=== PATIENT | female | born 1960 | race Caucasian/White ===

== ENCOUNTER 2017-08-29 15:10 | Emergency (ER) | payer MEDICAID, OTHER ==
[~2017-08-29] VITALS: Ht 177.8 cm; Wt 68.0 kg
[2017-08-29 17:05] LABS: Basophils # (auto) 0 uL; Basophils % (auto) 0.4 % (0.0-2.0); Eosinophils # (auto) 0.1 uL; Eosinophils % (auto) 1.7 % (0.0-7.0); Hematocrit 48.9 % (36.0-46.0); Hemoglobin 16.4 g/dL (12.2-16.2); Lymphocytes % (auto) 18.2 % (10.0-50.0); Mean Corpuscular Hemoglobin 31.7 pg (28.0-32.0); Mean Corpuscular Hgb Conc. 33.5 g/dL (32.0-36.0); Mean Corpuscular Volume 94.5 fL (80.0-100.0); Monocytes # (auto) 0.5 uL; Monocytes % (auto) 8.3 % (0.0-12.0); Neutrophils % (auto) 71.4 % (37.0-80.0); Nucleated Red Blood Cells % 0.2 %; Platelet Count (auto) 237 10^3/uL (140-450); Red Blood Cells 5.17 10^6/uL (4.0-5.20); Red Cell Distribution Width 14.9 % (11.8-14.3); White Blood Cell 5.6 10^3/uL (4.4-10.8)
[2017-08-29 17:20] LABS: Albumin 4.2 g/dL (3.4-5.0); Calcium 9.5 mg/dL (8.5-10.1); Magnesium 2.3 mg/dL (1.6-2.6); Potassium 3.4 mmol/L (3.5-5.1); Salicylate 4.4 mg/dL (2.8-20.0)
[2017-08-29 17:23] LABS: Acetaminophen < 2.0 ug/mL (10-30); Bilirubin, Total 0.5 mg/dL (0.2-1.0); Total Protein 7.1 g/dL (6.4-8.2)
[2017-08-29 19:33] LABS: Urine Amorphous Crystal FEW /hpf (None Seen); Urine Bacteria FEW /hpf (None Seen); Urine Blood Negative /uL (Negative); Urine Mucus FEW (None Seen); Urine Specific Gravity 1.012 (1.001-1.035); Urine WBC 61 /hpf (0 - 5)
[2017-08-29] MEDS ORDERED: cefTRIAXone 1GM/10ml IVPUSH 10 ML IV ONE (21:30)
[2017-08-30 04:20] VITALS: BP 111/71
== END 2017-08-30 06:30 | disposition home or self-care (01) ==
LOC: EDBD 15:10 → ER 15:20
DX: R45.851 Suicidal ideations (principal); F41.9 Anxiety disorder, unspecified; F31.9 Bipolar disorder, unspecified; Z63.4 Disappearance and death of family member; F17.210 Nicotine dependence, cigarettes, uncomplicated
CPT/HCPCS: 36415; 71045; 80053; 80329; 81001; 83735; 85025; 93005; 94761; 96374

== ENCOUNTER 2017-12-24 01:44 | Emergency (ER) | payer MEDICAID ==
[~2017-12-24] VITALS: Ht 180.3 cm; Wt 77.1 kg
[2017-12-24 07:02] LABS: Urine Bacteria NONE SEEN /hpf (None Seen); Urine Blood TRACE /uL (Negative); Urine Mucus FEW (None Seen); Urine Specific Gravity 1.014 (1.001-1.035); Urine WBC 1 /hpf (0 - 5)
[2017-12-24 07:20] LABS: Alcohol, Urine < 3.0 mg/dL (0-5); Amphetamine Screen, Urine NEGATIVE (NEGATIVE); Barbiturate Scree,Urine NEGATIVE (NEGATIVE); Benzodiazephine Screen, Urine NEGATIVE (NEGATIVE); Cocaine Screen, Urine NEGATIVE (NEGATIVE); Opiate Scree,Urine NEGATIVE (NEGATIVE); Phencyclidine Screen, Urine NEGATIVE (NEGATIVE)
[2017-12-24 07:24] LABS: Basophils # (auto) 0.1 uL; Basophils % (auto) 2.3 % (0.0-2.0); Eosinophils # (auto) 0.1 uL; Eosinophils % (auto) 1.3 % (0.0-7.0); Hematocrit 42.7 % (36.0-46.0); Hemoglobin 14.6 g/dL (12.2-16.2); Lymphocytes # (auto) 1.6 uL; Lymphocytes % (auto) 31.7 % (10.0-50.0); Mean Corpuscular Hemoglobin 32.7 pg (28.0-32.0); Mean Corpuscular Hgb Conc. 34.2 g/dL (32.0-36.0); Mean Corpuscular Volume 95.7 fL (80.0-100.0); Monocytes # (auto) 0.6 uL; Monocytes % (auto) 12.1 % (0.0-12.0); Neutrophils # (auto) 2.7 uL; Neutrophils % (auto) 52.6 % (37.0-80.0); Platelet Count (auto) 220 10^3/uL (140-450); Red Blood Cells 4.46 10^6/uL (4.0-5.20); White Blood Cell 5.2 10^3/uL (4.4-10.8)
[2017-12-24 07:33] LABS: Cannabinoid Screen, Urine POSITIVE (NEGATIVE)
[2017-12-24 07:41] LABS: Albumin 3.6 g/dL (3.4-5.0); Anion Gap 6 (5-15); Blood Urea Nitrogen 11 mg/dL (7-18); Calcium 8.7 mg/dL (8.5-10.1); Carbon Dioxide 29 mmol/L (21-32); Chloride 108 mmol/L (98-107); Glucose 96 mg/dL (74-106); Potassium 3.5 mmol/L (3.5-5.1); Sodium 143 mmol/L (136-145)
[2017-12-24 07:43] LABS: Alanine Aminotransferase 12 U/L (13-56); Aspartate Aminotransferase 7 U/L (15-37); BUN/Creatinine Ratio 11.6; Blood Alcohol < 3.0 mg/dL (0-5); GFR African American 78 mL/min; GFR Non-African American 64 mL/min
[2017-12-24 07:47] LABS: Alkaline Phosphatase 81 U/L (45-117); Bilirubin, Total 0.6 mg/dL (0.2-1.0); Total Protein 6.4 g/dL (6.4-8.2)
[2017-12-24 07:55] LABS: Acetaminophen < 2.0 ug/mL (10-30); Salicylate 3.7 mg/dL (2.8-20.0)
[2017-12-24] MEDS: LORazepam 0.5 MG TAB PO PRN (21:20)
[2017-12-24] MEDS: traZODone HCL 50 MG TAB PO SCH (22:53)
[2017-12-25] MEDS: PARoxetine 20 MG TAB PO SCH (09:47)
[2017-12-25] MEDS: LORazepam 0.5 MG TAB PO PRN (12:59)
[2017-12-25] MEDS: traZODone HCL 50 MG TAB PO SCH (22:00)
[2017-12-26] MEDS: PARoxetine 20 MG TAB PO SCH (09:44)
[2017-12-26] MEDS: traZODone HCL 50 MG TAB PO SCH (22:52)
[2017-12-27] MEDS: PARoxetine 20 MG TAB PO SCH (10:40)
[2017-12-27] MEDS: LORazepam 0.5 MG TAB PO PRN (10:40)
[2017-12-27 19:56] VITALS: BP 105/65
== END 2017-12-27 19:59 | disposition home or self-care (01) ==
LOC: EDBD 01:44 → ER 01:44
DX: R45.851 Suicidal ideations (principal); F41.9 Anxiety disorder, unspecified; F32.9 Major depressive disorder, single episode, unspecified; F17.210 Nicotine dependence, cigarettes, uncomplicated
CPT/HCPCS: 36415; 71046; 80053; 80307; 80320; 80329; 81001; 85025; 99284; J7030; 93005

== ENCOUNTER 2022-03-21 17:18 | Inpatient (IN) | payer MEDICAID, OTHER ==
[~2022-03-21] VITALS: Ht 175.3 cm; Wt 91.0 kg
[2022-03-21] MEDS ORDERED: SODIUM CHLORIDE 0.9% 1,000 ML IV ONE ×2 (17:30)
[2022-03-21 18:01] LABS: Hematocrit 36.9 % (36.0-46.0); Mean Corpuscular Hemoglobin 30.8 pg (28.0-32.0); Mean Corpuscular Hgb Conc. 35.3 g/dL (32.0-36.0); Mean Corpuscular Volume 87.2 fL (80.0-100.0); Red Blood Cells 4.24 10^6/uL (4.0-5.20); Red Cell Distribution Width 14.6 % (11.8-14.3); White Blood Cell 22.8 10^3/uL (4.4-10.8)
[2022-03-21 18:06] LABS: Basophils % (manual) 0 (0.0-2.0); Blast Cells 0; Eosinophils % (manual) 0 (0-7); Myelocytes % 0; Promyelocytes % 0; Reactive Lymphocytes 0
[2022-03-21 18:15] LABS: Albumin 1.5 g/dL (3.4-5.0); Calcium 9.1 mg/dL (8.5-10.1)
[2022-03-21 18:18] LABS: Total Protein 4.8 g/dL (6.4-8.2)
[2022-03-21 18:28] LABS: Potassium 2.1 mmol/L (3.5-5.1)
[2022-03-21 18:30] LABS: Band Neutrophils % (manual) 6; Lymphocytes % (manual) 7 (10.0-50.0); Metamyelocytes % 1; Monocytes % (manual) 12 (0-12)
[2022-03-21] MEDS ORDERED: ENOXAPARIN SOD 80 MG/0.8ML SYRINGE SC ONE (19:00)
[2022-03-21] MEDS: POTASSIUM CHL 20MEQ/100ML 100 ML IV SCH ×3 (19:04→23:41)
[2022-03-22] MEDS ORDERED: HYDROcodone-ACET 5/325MG TAB PO PRN (00:45)
[2022-03-22] MEDS ORDERED: SODIUM CHLORIDE 0.9% 1,000 ML IV SCH (00:45)
[2022-03-22] MEDS ORDERED: NITROGLYCERIN 0.4 MG SL TAB SL PRN (00:45)
[2022-03-22] MEDS ORDERED: DOCUSATE SOD 100 MG CAP PO PRN (00:45)
[2022-03-22] MEDS ORDERED: ONDANSETRON HCL 4 MG/2 ML VIAL IV PRN (00:45)
[2022-03-22] MEDS ORDERED: cefTRIAXone 1GM/50ML D5W 50 ML IV ONE (00:45)
[2022-03-22] MEDS ORDERED: ACETAMINOPHEN 325 MG TAB PO PRN (00:45)
[2022-03-22] MEDS ORDERED: MORPHINE SULFATE INJ 2 MG/ml SYRG IV PRN (00:45)
[2022-03-22 00:49] VITALS: BP 98/56
[2022-03-22] MEDS ORDERED: AZITHROMYCIN 500MG/ 250ML 250 ML IV ONE (02:45)
[2022-03-22] MEDS: ALBUMIN 25% 100 ML IV SCH ×3 (03:21→18:14)
[2022-03-22 05:38] LABS: Urine Bacteria FEW /hpf (None Seen); Urine Blood Negative /uL (Negative); Urine Mucus FEW (None Seen); Urine Specific Gravity 1.018 (1.001-1.035); Urine WBC 3 /hpf (0 - 5)
[2022-03-22 06:55] LABS: Basophils # (auto) 0.1 10 ^3/uL (0-0.2); Basophils % (auto) 0.3 % (0.0-2.0); Eosinophils # (auto) 0 10 ^3/uL (0-0.8); Hematocrit 33.4 % (36.0-46.0); Hemoglobin 11.6 g/dL (12.2-16.2); Lymphocytes # (auto) 1.2 10 ^3/uL (0.4-5.4); Lymphocytes % (auto) 5.6 % (10.0-50.0); Mean Corpuscular Hemoglobin 30.4 pg (28.0-32.0); Mean Corpuscular Hgb Conc. 34.8 g/dL (32.0-36.0); Mean Corpuscular Volume 87.5 fL (80.0-100.0); Monocytes # (auto) 2.3 10 ^3/uL (0-1.3); Monocytes % (auto) 10.9 % (0.0-12.0); Neutrophils # (auto) 17.9 10 ^3/uL (1.6-8.6); Neutrophils % (auto) 83.2 % (37.0-80.0); Red Blood Cells 3.82 10^6/uL (4.0-5.20); Red Cell Distribution Width 14.6 % (11.8-14.3); White Blood Cell 21.5 10^3/uL (4.4-10.8)
[2022-03-22 07:14] LABS: Albumin 1.9 g/dL (3.4-5.0); Calcium 8.8 mg/dL (8.5-10.1)
[2022-03-22 07:18] LABS: BUN/Creatinine Ratio 37.7; Bilirubin, Total 1.6 mg/dL (0.2-1.0); Total Protein 5.7 g/dL (6.4-8.2)
[2022-03-22 07:28] LABS: Potassium 2.1 mmol/L (3.5-5.1)
[2022-03-22] MEDS: cefTRIAXone 1GM/50ML D5W 50 ML IV SCH (09:35)
[2022-03-22] MEDS: FAMOTIDINE (10MG/ML) 2ML VL IV SCH (09:35)
[2022-03-22] MEDS: ASCORBIC ACID 500 MG TAB PO SCH (09:36)
[2022-03-22] MEDS: ASPirin 81 mg TAB PO SCH (09:36)
[2022-03-22] MEDS: ZINC SULFATE 220mg CAP or TAB PO SCH (09:37)
[2022-03-22] MEDS: SERTRALINE HCL 50 MG TAB PO SCH (09:37)
[2022-03-22] MEDS ORDERED: ENOXAPARIN SOD 40 MG/0.4 ML SYRINGE SC SCH (10:00)
[2022-03-22] MEDS ORDERED: POTASSIUM CHL 20 Meq TABLET PO ONE ×2 (11:00→19:45)
[2022-03-22] MEDS: SODIUM CHLORIDE 0.9% 1,000 ML IV SCH ×2 (11:30→18:10)
[2022-03-22] MEDS: POTASSIUM CHL 20MEQ/100ML 100 ML IV SCH ×5 (11:49→20:00)
[2022-03-22 12:30] LABS: Alcohol, Urine < 3.0 mg/dL (0-10); Amphetamine Screen, Urine NEGATIVE (NEGATIVE); Barbiturate Scree,Urine NEGATIVE (NEGATIVE); Benzodiazephine Screen, Urine NEGATIVE (NEGATIVE); Cannabinoid Screen, Urine POSITIVE (NEGATIVE); Cocaine Screen, Urine NEGATIVE (NEGATIVE); Opiate Scree,Urine NEGATIVE (NEGATIVE); Phencyclidine Screen, Urine NEGATIVE (NEGATIVE)
[2022-03-22 19:34] LABS: BUN/Creatinine Ratio 33.9; Calcium 8.8 mg/dL (8.5-10.1)
[2022-03-23] MEDS: POTASSIUM CHL 20MEQ/100ML 100 ML IV SCH (00:13)
[2022-03-23] MEDS: ASCORBIC ACID 500 MG TAB PO SCH ×2 (00:14→11:53)
[2022-03-23] MEDS: FAMOTIDINE (10MG/ML) 2ML VL IV SCH ×2 (00:14→11:52)
[2022-03-23] MEDS: ENOXAPARIN SOD 80 MG/0.8ML SYRINGE SC SCH ×2 (00:14→11:54)
[2022-03-23 00:49] VITALS: BP 98/56
[2022-03-23] MEDS: SODIUM CHLORIDE 0.9% 1,000 ML IV SCH ×3 (00:50→15:56)
[2022-03-23] MEDS ORDERED: DIVA1TAB59 PO (02:31)
[2022-03-23] MEDS ORDERED: TOPI25TA84 PO (02:31)
[2022-03-23] MEDS ORDERED: QUET100T47 PO (02:31)
[2022-03-23 05:00] VITALS: BP 108/69
[2022-03-23] MEDS ORDERED: POTASSIUM CHL 20 Meq TABLET PO ONE ×2 (07:00→09:30)
[2022-03-23 08:00] VITALS: BP 112/81
[2022-03-23 08:50] LABS: Hematocrit 31.4 % (36.0-46.0); Hemoglobin 10.7 g/dL (12.2-16.2); Mean Corpuscular Hemoglobin 30.2 pg (28.0-32.0); Mean Corpuscular Hgb Conc. 34.2 g/dL (32.0-36.0); Mean Corpuscular Volume 88.3 fL (80.0-100.0); Red Blood Cells 3.55 10^6/uL (4.0-5.20); Red Cell Distribution Width 14.9 % (11.8-14.3); White Blood Cell 21.3 10^3/uL (4.4-10.8)
[2022-03-23 09:00] VITALS: BP 112/81
[2022-03-23 09:02] LABS: BUN/Creatinine Ratio 38.6; Calcium 8.7 mg/dL (8.5-10.1); Potassium 3.3 mmol/L (3.5-5.1)
[2022-03-23] MEDS: cefTRIAXone 1GM/50ML D5W 50 ML IV SCH (09:15)
[2022-03-23 09:34] LABS: Basophils % (manual) 0 (0.0-2.0); Blast Cells 0; Myelocytes % 0; Promyelocytes % 0; Reactive Lymphocytes 0
[2022-03-23] MEDS ORDERED: IOHEXOL 350 MG/ML 100ML IJ ONE (09:44)
[2022-03-23 09:46] LABS: Band Neutrophils % (manual) 4; Eosinophils % (manual) 1 (0-7); Lymphocytes % (manual) 4 (10.0-50.0); Metamyelocytes % 1; Monocytes % (manual) 6 (0-12)
[2022-03-23] MEDS ORDERED: AZITHROMYCIN 500MG/ 250ML 250 ML IV SCH (10:00)
[2022-03-23] MEDS: ASPirin 81 mg TAB PO SCH (11:53)
[2022-03-23] MEDS: ZINC SULFATE 220mg CAP or TAB PO SCH (11:53)
[2022-03-23] MEDS: SERTRALINE HCL 50 MG TAB PO SCH (11:54)
[2022-03-23 13:00] VITALS: BP 112/74
[2022-03-23 17:00] VITALS: BP 113/80
== END 2022-03-23 19:30 | DRG 720 ==
LOC: EDBD 17:18 → ER 17:18 → TELE 03-22 00:44 → TELE-WESTW 03-22 22:30
PROVIDERS: ADMIT Nurse Practitioner Family; ATTEND Internal Medicine
DX: A41.9 Sepsis, unspecified organism (principal); E43 Unspecified severe protein-calorie malnutrition; L89.313 Pressure ulcer of right buttock, stage 3; N17.9 Acute kidney failure, unspecified; I82.412 Acute embolism and thrombosis of left femoral vein; J18.9 Pneumonia, unspecified organism; L89.323 Pressure ulcer of left buttock, stage 3; E86.0 Dehydration; R62.7 Adult failure to thrive; I82.442 Acute embolism and thrombosis of left tibial vein; E87.6 Hypokalemia; F17.210 Nicotine dependence, cigarettes, uncomplicated; I10 Essential (primary) hypertension; Z20.822 Contact with and (suspected) exposure to COVID-19; F32.A Depression, unspecified; F41.9 Anxiety disorder, unspecified; R77.8 Other specified abnormalities of plasma proteins; R79.89 Other specified abnormal findings of blood chemistry; Z88.2 Allergy status to sulfonamides; Z68.29 Body mass index [BMI] 29.0-29.9, adult
CPT/HCPCS: 36415; 70450; 71045; 71275; 76604; 80048; 80053; 80307; 80320; 81001; 84484; 85007; 85025; 85027; 85379; 87040; 87426; 93005; 93970; 96361; 96365; G0378; J0696; J2405; J3480; J3490; P9047